=== PATIENT | female | born 1970 | race Caucasian/White ===

== ENCOUNTER 2023-05-05 15:13 | Outpatient (AMB) | payer BC, SELFPAY ==
[2023-05-05 15:22] VITALS: BP 128/80; PULSE 83; TEMP 36.4; O2SAT 98; BMI 44.9
--- NOTE | 2023-05-05 15:22 | MHC.OFFWIV ---
Intake Vital Signs 05/05/23 15:22 Height 5 ft 5 in Weight 270 lb BMI 44.9 BP 128/80 Blood Pressure Location Rt brachial Position Sitting Pulse 83 Pulse Source Pulse Oximeter Temp 97.6 F Temp Source Oral Pulse Oximetry (%) 98 Intake Visit Reasons: [employer]/sore throat (lobby masked) Intake Note: pt is here for c.o sore throat Patient Tobacco Use Status: Never used Tobacco Allergies No Known Allergies Allergy (Verified 05/05/23 15:23) Do you need a note to return to daycare/school/sports/work: No PFSH Social History Patient Tobacco Use Status: Never used Tobacco Review of Systems Const All systems reviewed & are unremarkable except as noted in HPI and below Physical Exam Vital Signs: Last Vital Signs Temp 97.6 F 05/05/23 15:22 Pulse 83 05/05/23 15:22 BP 128/80 05/05/23 15:22 Pulse Ox 98 05/05/23 15:22 BMI result Body Mass Index 44.9 Const General: comfortable and no acute distress HEENT Head: Yes normocephalic Ears: external ears normal and TM's normal bilaterally General nose exam: Normal nasal mucous membranes and turbinates present Face and sinus: Yes sinuses nontender Mouth: moist mucous membranes and Abnormal oral and palatal mucosa present erythematous Throat: Yes uvula midline and Yes postnasal drainage Resp Effort & Inspection: normal respiratory effort, able to speak in complete sentences and no cough Auscultation: clear to auscultation bilaterally, no crackles, no rales, no rhonchi and no wheezes Cardio Rate: regular rate Rhythm: regular rhythm Assessment & Plan Assessment & Plan (1) Acute pharyngitis: Code(s): J02.9 - Acute pharyngitis, unspecified Qualifiers: Pharyngitis/tonsillitis etiology: other specified organisms Qualified Code(s): J02.8 - Acute pharyngitis due to other specified organisms Plan: - OTC cold/cough remedies - Warm fluids with honey - Acetaminophen for pain relief - SARs Orders: Orders SARS-CoV2/FLU/RSV Today J02.8 - Acute pharyngitis due to other specified organisms Coding Level of Care Code Est Pt Level 3 (35613) Diagnoses Acute pharyngitis due to other specified organisms J02.8 Pharyngitis/tonsillitis etiology: other specified organisms Time Spent (min) 15
== END 2023-05-05 17:07 | disposition home or self-care (01) ==
PROVIDERS: PCP Internal Medicine; Visit Provider Nurse Practitioner Family
DX: J02.9 Acute pharyngitis, unspecified (principal)
CPT/HCPCS: 87880; 99213

== ENCOUNTER 2023-05-05 15:36 | Outpatient (REF) | payer BC, SELFPAY ==
[2023-05-06 11:41] LABS: Influenza A PCR NEGATIVE (Negative); Influenza B PCR NEGATIVE (Negative); Resp Syncy Virus RNA Qual PCR NEGATIVE (Negative); SARS COV2 PCR INHOUSE NEGATIVE (Negative)
== END 2023-05-05 15:37 | disposition home or self-care (01) ==
LOC: HO.LAB 15:36
PROVIDERS: Visit Provider Nurse Practitioner Family
DX: Z11.52 Encounter for screening for COVID-19 (principal); Z20.822 Contact with and (suspected) exposure to COVID-19; J02.8 Acute pharyngitis due to other specified organisms
CPT/HCPCS: 0241U

== ENCOUNTER 2023-05-25 15:32 | Outpatient (AMB) | payer BC, SELFPAY ==
[2023-05-25 15:38] VITALS: BP 110/74; PULSE 82; TEMP 36.6; O2SAT 100
--- NOTE | 2023-05-25 15:38 | MHC.OFFWIV ---
Intake Vital Signs 05/25/23 15:38 Height 5 ft 5 in BP 110/74 Blood Pressure Location Rt brachial Pulse 82 Pulse Source Pulse Oximeter Temp 97.9 F Temp Source Oral Pulse Oximetry (%) 100 Oxygen Delivery Method Room Air Intake Visit Reasons: EP Diff Swallowing/Pain RT ear/hard to swollen Intake Note: pt was here a few weeks ago for throat pain and was neg for strep and covid and now she says it had went away now she has a right side ear pain and throat pain and a lump on the right side of her neck and it hurts to swallow she has the chills and is fatigue Patient Tobacco Use Status: Never used Tobacco Allergies No Known Allergies Allergy (Verified 05/25/23 16:53) Medication List - Last Reconciled 05/25/23 by TANESHA Hobbs albuterol sulfate 90 mcg/actuation inhalation amoxicillin-pot clavulanate 875-125 mg 1 tab PO Q12H fluticasone propion-salmeterol 45-21 mcg/actuation inhalation hydrochlorothiazide 25 mg PO DAILY ibuprofen (Advil) 200 mg PO Q6H PRN losartan 25 mg PO DAILY omeprazole 20 mg PO DAILY prednisone 40 mg (2 x 20 mg) PO DAILY HPI HPI Comments History of Present Illness Details 53-year-old woman in for a sick visit. Patient states for the past 8 days she has developed upper respiratory symptoms including cough, sore throat, headache, postnasal drip, chest congestion. She was seen in our walk-in 3 weeks prior for acute pharyngitis was instructed to take [id number] medicine for symptom relief. Patient denies chest pain, shortness a breath, dizziness, numbness, nausea, vomiting, diarrhea. In office strep test negative. Patient found to have otitis media of the right ear. Tonsils +2. Positive sinus tenderness. Patient has erythema of the posterior pharynx no exudate. Patient has full range of motion of her neck. Not in respiratory distress. [facility] Social History Patient Tobacco Use Status: Never used Tobacco Review of Systems Const All systems reviewed & are unremarkable except as noted in HPI and below Physical Exam Vital Signs: Last Vital Signs Temp 97.9 F 05/25/23 15:38 Pulse 82 05/25/23 15:38 BP 110/74 05/25/23 15:38 Pulse Ox 100 05/25/23 15:38 Oxygen Delivery Method Room Air 05/25/23 15:38 Vital signs reviewed stable. Const Other: Appearance: Alert.? Oriented X3.? No acute distress.? Head: Normocephalic, atraumatic, no step-offs or deformities Eyes: Pupils equal, round and reactive to light.? ENT: Pharynx erythema, + cobblestone, no exudate. Tonisls +2. Sinus tenderness. Right TM intact with erythema and effusion. ? Neck: Normal inspection.? Neck supple.? CVS: Normal heart rate and rhythm.? Pulses normal.? Respiratory: No respiratory distress.? Faint bilateral wheeze upper lobes. ? Neuro: Oriented X 3.? No motor deficit.? No sensory deficit. CN 2-12 intact Results AMB Rapid Strep AMB Rapid Strep Negative Last Edit by Vita Roberts CMA on 05/25/23 16:03 Assessment & Plan Assessment & Plan (1) Otitis media of right ear: Comment: Will give patient Augmentin and prednisone. Patient can continue to use [id number] medicine for symptom relief. Code(s): H66.91 - Otitis media, unspecified, right ear Qualifiers: Otitis media type: unspecified Qualified Code(s): H66.91 - Otitis media, unspecified, right ear Plan: Take your medications as prescribed. If you were prescribed antibiotics today, it is important that you take your medication to their entirety, do not skip any doses, do not finish them early. Follow-up with your primary care provider this week. Return to the emergency department with new or worsening symptoms. Such as fevers, chills, chest pain, shortness of breath, nausea, vomiting, dizziness, headache, vision changes, lethargy In case of emergency call 911 Plan Follow-up with PCP Orders: Orders AMB Rapid Strep Screen Today Z13.9 - Encounter for screening, unspecified SARS-CoV2/FLU/RSV Today J06.9 - Acute upper respiratory infection, unspecified XR chest 2V Today J18.9 - Pneumonia, unspecified organism Medications: New amoxicillin-pot clavulanate 875-125 mg 1 tab PO Q12H 14 tabs 0RF prednisone 40 mg (2 x 20 mg) PO DAILY 14 tabs 0RF Coding Level of Care Code Est Pt Level 3 (64547) Diagnoses Right otitis media, unspecified otitis media type H66.91 Otitis media type: unspecified Time Spent (min) 24
== END 2023-05-25 16:40 | disposition home or self-care (01) ==
PROVIDERS: PCP Internal Medicine; Visit Provider Nurse Practitioner Primary Care
DX: J02.9 Acute pharyngitis, unspecified (principal)
CPT/HCPCS: 87880; 99213

== ENCOUNTER 2023-05-25 16:01 | Outpatient (REF) | payer BC, SELFPAY ==
--- NOTE | ~2023-05-25 | XR_ITS ---
EXAMINATION: XR CHEST CLINICAL INFORMATION: Pneumonia. COMPARISON: Chest radiograph 05/09/2019. TECHNIQUE: 2 views of the chest were obtained. FINDINGS: Normal appearance of the cardiomediastinal silhouette. No focal airspace opacities, pleural effusion or pneumothorax. No evidence of pulmonary edema. Thoracic spondylosis. No acute osseous findings. Visualized upper abdomen is within normal limits. XR/XR chest 2V IMPRESSION: No acute cardiopulmonary findings.
[2023-05-26 13:40] LABS: Influenza A PCR NEGATIVE (Negative); Influenza B PCR NEGATIVE (Negative); Resp Syncy Virus RNA Qual PCR NEGATIVE (Negative); SARS COV2 PCR INHOUSE NEGATIVE (Negative)
== END 2023-05-25 16:02 | disposition home or self-care (01) ==
LOC: HO.HMGCX 16:01
PROVIDERS: PCP Nurse Practitioner Family; Visit Provider Nurse Practitioner Primary Care
DX: Z11.52 Encounter for screening for COVID-19 (principal); J18.9 Pneumonia, unspecified organism; J06.9 Acute upper respiratory infection, unspecified
CPT/HCPCS: 0241U; 71046